=== PATIENT | female | born 1985 ===

== ENCOUNTER 2021-03-30 11:23 | Inpatient (IN) | payer OTHER ==
[~2021-03-30] VITALS: Ht 162.6 cm; Wt 61.2 kg
[2021-03-30] MEDS ORDERED: SPRYCEL100 MG (16:53)
[2021-03-31] MEDS ORDERED: GABAPENTIN100 M2 (14:01)
[2021-03-31] MEDS ORDERED: DICLOFENAC SOD100 MG (14:01)
[2021-03-31] MEDS ORDERED: FOLIC ACID1 MG (14:01)
== END 2021-04-04 19:39 | disposition home or self-care (01) | DRG 743 ==
LOC: SURG 03-31 06:43 → O/R 03-31 06:43 → SURH 03-31 12:15 → SURG 04-01 08:31
PROVIDERS: ADMIT Specialist; ATTEND Specialist
PROC: 0UT70ZZ Resection of Bilateral Fallopian Tubes, Open Approach (ICD-10-PCS; 2021-03-31)
PROC: 0UT90ZZ Resection of Uterus, Open Approach (ICD-10-PCS; principal; 2021-03-31 12:00)
DX: D25.1 Intramural leiomyoma of uterus (principal); D25.2 Subserosal leiomyoma of uterus; Z20.822 Contact with and (suspected) exposure to COVID-19